=== PATIENT | female | born 2000 | race Caucasian/White ===

== ENCOUNTER 2024-03-17 21:05 | Outpatient (CLI) | payer OTHER ==
[2024-03-17 22:07] VITALS: BP 111/64; PULSE 92; RESP 16; TEMP 98
--- NOTE | 2024-03-19 05:38 | P.MSEPDOC ---
Presenting Problems - Arrival Data Date of Arrival on Unit: 03/17/24 Time of Arrival on Unit: 21:05 Mode of Transport: Wheelchair - Complaint OB-Reason for Admission/Chief Complaint: Vaginal Bleeding Comment: bleeding started around 6:50pm tonight when she went to the bathroom and noted a small amount of bright red blood on her underwear then 30min later some more, pt. 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 states she was drinking plently of water today pad in place- no bleeing noted since present to triage, pt. did take a picture of the blood in her undwear- small amout of red blood noted about the cicumfence of a golf ball, then the 2nd picture about the cirumfrence of 2 golf balls Medical History - Information : 2 Para: 0 Term: 0 : 0 Number of Living Children: 0 - Gestational Age Gestational Age by RENEE (wks/days): 26 Weeks and 2 Days Review of Systems - Review of Systems Constitutional: No problems Breast: No problems ENT: No problems Cardiovascular: No problems Respiratory: No problems Gastrointestinal: No problems Genitourinary: No problems Musculoskeletal: No problems Neurological: No problems Skin: No problems Vital Signs - Temperature Temperature: 98.0 F Temperature Source: Temporal Artery Scan - Pulse Pulse Oximetery Pulse Rate: 92 Pulse Assessment Method: Automatic Cuff - Respirations Respiratory Rate: 16 Oxygen Delivery Method: Room Air O2 Sat by Pulse Oximetry: 100 - Blood Pressure Right Arm Blood Pressure: 111/64 Blood Pressure Mean: 79 Blood Pressure Source: Automatic Cuff Medical Screen Scoring - Assessment - Baby A Baseline FHR: 135 Heart Rate - NICHD Category: Category I (Normal) Physician Notification - Physician Notified Physician Notified Date: 03/17/24 Physician Notified Time: 21:27 Physician: Martha Murillo Order Received: Yes (discharge pt. home) Maternal Triage Index - Maternal Triage Index Presenting for scheduled procedure w/no complaint: No - Stat/Priority 1 Stat Priority 1: No - Urgent/Priority 2 Urgent Priority 2: Yes Provider Notified: Dr. Murillo Provider Notified Time: 21:27 Criteria Met for Priority 2: pt. states bleeding in underwear noted 6:50pm tonight, pt. was at her sister in laws wedding. no bleeding noted since present to traige Disposition - Disposition OB Disposition: Discharge to home Discharge Date: 03/17/24 Discharge Time: 21:55 I agree with the RN Medical Screening Exam: Yes Case reviewed; plan agreed upon as documented in EMR&OBIX.: Yes Diagnosis: SPOTTING COMPLICATING , THIRD TRIMESTER
== END 2024-03-17 21:55 | disposition home or self-care (01) ==
LOC: FBPOP 21:05
PROVIDERS: ATTEND Obstetrics & Gynecology
DX: O26.852 Spotting complicating pregnancy, second trimester (principal); Z3A.26 26 weeks gestation of pregnancy; Z91.018 Allergy to other foods
CPT/HCPCS: 99215